=== PATIENT | male | born 1945 | race Two or more races ===

== ENCOUNTER 2023-07-11 15:19 | Emergency (ER) | payer OTHER ==
[~2023-07-11] VITALS: Ht 175.3 cm; Wt 67.6 kg
[2023-07-11 15:46] VITALS: BP 150/83; PULSE 81; RESP 15; O2SAT 97
== END 2023-07-11 19:08 | disposition left against medical advice (07) ==
LOC: ER 15:19
DX: S60.414A Abrasion of right ring finger, initial encounter (principal); S60.051A Contusion of right little finger without damage to nail, initial encounter; Z53.21 Procedure and treatment not carried out due to patient leaving prior to being seen by health care provider; W54.0XXA Bitten by dog, initial encounter; Y93.89 Activity, other specified; Y92.89 Other specified places as the place of occurrence of the external cause; Y99.8 Other external cause status